=== PATIENT | female | born 1960 | race African-American/Black ===

== ENCOUNTER 2019-06-20 11:42 | Emergency (ER) | payer OTHER ==
[~2019-06-20] VITALS: Ht 157.5 cm; Wt 47.2 kg
[2019-06-20 11:44] VITALS: BP 132/86
[2019-06-20] MEDS ORDERED: CLEOCIN HCL150 MG PO (12:17)
== END 2019-06-20 13:02 | disposition home or self-care (01) ==
LOC: ER 11:42
DX: L03.011 Cellulitis of right finger (principal); I10 Essential (primary) hypertension; E11.9 Type 2 diabetes mellitus without complications; Z87.891 Personal history of nicotine dependence